=== PATIENT | male | born 1945 | race Asian ===

== ENCOUNTER 2022-07-15 04:40 | Emergency (ER) | payer OTHER, MEDICARE, SELFPAY ==
[2022-07-15 04:51] VITALS: BP 178/89; PULSE 56; RESP 20; TEMP 37.5; O2SAT 96
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
[2022-07-15] MEDS: TETANUS,DIPHTHERIA,AC PERTUSSIS ADULT 0.5 ML (ADACEL) IM (05:36)
[2022-07-15 05:40] VITALS: BP 164/77; PULSE 68; RESP 18; O2SAT 99
== END 2022-07-15 05:52 | disposition home or self-care (01) ==
PROVIDERS: Emergency Provider Emergency Medicine
DX: K08.89 Other specified disorders of teeth and supporting structures (principal); I10 Essential (primary) hypertension; Z23 Encounter for immunization; V49.40XA Driver injured in collision with unspecified motor vehicles in traffic accident, initial encounter
CPT/HCPCS: 90471; 90715; 99282